=== PATIENT | male | born 1990 | race Caucasian/White ===

== ENCOUNTER 2022-01-02 12:44 | Outpatient (CLI) | payer OTHER, SELFPAY ==
--- NOTE | 2022-01-02 13:00 | MR_ITS ---
[address] [address] Phone:?[phone] Fax:?[phone] Referring Physician Information: Elie Chappell M.D. [address] [place] [id number] Phone:?[phone] Fax:?[phone] Patient:Amanda Liriano D.O.B:?1990 Sex:?Male Phone:? [facility] MRN:?[id number] Exam Date:?01/02/2022 ? EXAM: MRI of the LEFT ANKLE, without contrast CLINICAL: Left ankle pain. Evaluate for anterior impingement. COMPARISONS: None available. TECHNICAL: MRI sequences of the left ankle: Axials: PD, T2 Coronals: PD, T2 Sagittals: PD, T2, STIR SEDATION: None. CONTRAST: None. FINDINGS: Achilles tendon: Very minimal partial interstitial tearing of the lateral talus tendon on axial series 10 images 1-9. Plantar aponeurosis: Unremarkable. Tarsal tunnel: No masses identified. Sinus Tarsi:?Normal fat within the sinus tarsi without significant scar, synovitis, or mass lesion. Ligaments: Anterior talofibular: No injury. Calcaneofibular: No injury. Posterior talofibular: No injury. Syndesmotic:?The anterior inferior and posterior inferior tibiofibular ligaments are intact. Deltoid: The deep and superficial components of the deltoid ligament are intact. Sinus tarsi: Intact lateral cervical and medial interosseous ligaments. Spring: Intact. Bifurcate and calcaneocuboid: Intact. Flexor tendons: Posterior tibial: No tendinopathy, tear or tenosynovitis. Flexor digitorum longus: Normal. Flexor hallucis longus: Normal. Peroneus brevis and longus: No tendinopathy, tear or tenosynovitis. Extensor tendons: Tibialis anterior: Normal, without tendinopathy, tenosynovitis or tear. Extensor hallucis longus: Normal. Extensor digitorum longus: Normal. Joints/Osseous structures: There is a small osseous lesion involving the dorsal talar neck measuring approximately 8 x 7 x 6 mm in size as seen on sagittal series 7 image 14 and axial series 4 image 18. This is seen to involve the cortex of the dorsal talar neck and this lesion is low signal with a peripherally sclerotic rim on all sequences. Possible tiny internal low signal nidus. Prominent adjacent bone marrow edema is seen to involve the talus. Remaining imaged osseous structures appear intact. No evidence of fracture or talar dome osteochondral lesion. Small volume of fluid is present within the tibiotalar joint. IMPRESSION: 1. 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 Recommend follow-up with CT for complete evaluation. 2. Minimal partial interstitial tearing of the lateral Achilles tendon. 3. No evidence of ligamentous injury. JCZ Electronically signed on 01/02/2022 3:49:00 PM by Kentrell Bullock D.O.
== END 2022-01-02 12:45 | disposition home or self-care (01) ==
LOC: MRI 12:46
PROVIDERS: Visit Provider Orthopaedic Surgery
DX: M25.572 Pain in left ankle and joints of left foot (principal); M25.872 Other specified joint disorders, left ankle and foot; S86.012A Strain of left Achilles tendon, initial encounter
CPT/HCPCS: 73721

== ENCOUNTER 2022-01-09 08:59 | Outpatient (CLI) | payer OTHER, SELFPAY ==
--- NOTE | 2022-01-09 09:00 | CRLHL7_ITS ---
For Patients: As a result of the Century Cures Act, medical imaging exams and procedure reports are released immediately into your electronic medical record. You may view this report before your referring provider. If you have questions, please contact your health care provider. HISTORY: Ankle pain. Osteoid osteoma of the talus. TECHNIQUE: CT left ankle without contrast. COMPARISON: Left ankle MRI 01/02/2022. FINDINGS: 7 mm rounded lesion with central focus of calcification and peripheral lucency in the dorsal neck of the talus corresponding to lesion seen on MRI. Focal full-thickness disruption of the dorsal talar neck cortex. Small chronic ossicle adjacent to the head of the talus at the dorsal aspect of the talonavicular joint. Joint spaces are maintained. No fracture. Muscle mass is maintained. 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 Please note that all CT scans at this facility use dose modulation, iterative reconstruction, and/or weight-based dosing when appropriate to reduce radiation dose to as low as reasonably achievable. Dictated by Handy Diaz MD @ 01/24/2022 3:24:25 PM (Electronically Signed)
== END 2022-01-09 09:00 | disposition home or self-care (01) ==
LOC: CT 08:59
PROVIDERS: Visit Provider Orthopaedic Surgery
DX: D16.30 Benign neoplasm of short bones of unspecified lower limb (principal); M25.572 Pain in left ankle and joints of left foot
CPT/HCPCS: 73700